=== PATIENT | female | born 1970 | race Caucasian/White ===

== ENCOUNTER 2017-03-07 18:58 | Emergency (ER) | payer SELFPAY ==
[~2017-03-07] VITALS: Ht 165.1 cm; Wt 83.9 kg
[2017-03-07] MEDS ORDERED: IV NORMAL SALINE 1000ML BAG 1,000 ML IV SCH (19:17)
--- NOTE | 2017-03-07 19:32 | PHYS DOC ---
Adult General Chief Complaint Chief Complaint: ALTERED MENTAL STATUS HPI HPI Patient is a 46 year old female brought to the ED from home by EMS. History is from EMS and also from the patient's who arrived. Patient had been fine earlier today. About 5:30 or 6 she called her on his cell phone. He was at football practice. He thought her speech sounded slurred, she was saying that there was something wrong with her, he couldn't really make out what she was saying, he rushed home. When he got home he found her "freaking out" saying that she was going to . Her speech was slurred. Her fingers were cramped. He was concerned she might be having a stroke because of her slurred speech. He called 911. When paramedics arrived they stated that she was talking without slurred speech and corroborates this. She was breathing fast and deep according to and EMS. When they loaded her into the ambulance she "went out". They noted carpal spasm bilaterally. Her vitals remained stable despite being nonverbal and "out of it" although tachycardic in the 120s. Her sats were 99% on room air. Patient has been states "she panics real easy" but she has never had a panic attack or had anything like this to his knowledge. She's been nervous and anxious lately because they have 6 kids and she is always anxious at back to school time. However she has not had any complaints of this prior to this evening. She doesn't believe she would've taken any overdose, any and prescribed medications or other drugs. She's had a history of "anxiety and depression" but never been suicidal, never had any type of severe episode or hospitalization. She has no chronic medical problems, her only meds are related to anxiety and also Vyvanse. PCP Dr Mega Medeiros Review of Systems Review of Systems Patient is nonverbal and unable to give review of systems Current Medications Current Medications Current Medications Medications (Trade) Dose Ordered Sig/Wendie Start Time Stop Time Status Last Admin Dose Admin Fentanyl Citrate (Fentanyl 2ml Vial) 75 mcg 1X ONCE 03/07/17 20:45 03/07/17 20:46 DC 03/07/17 20:56 75 MCG Ketorolac Tromethamine (Toradol) 30 mg 1X ONCE 03/07/17 22:00 03/07/17 22:01 DC 03/07/17 21:51 30 MG Lorazepam (Ativan) 1 mg 1X ONCE 03/07/17 20:45 03/07/17 20:46 DC 03/07/17 20:56 1 MG Sodium Chloride 1,000 ml @ 1,000 mls/hr Q1H 03/07/17 19:17 03/07/17 20:17 DC 03/07/17 19:27 1,000 MLS/HR Allergies Allergies Allergies Coded Allergies Type Severity Reaction Last Updated Verified No Known Drug Allergies 03/07/17 No Physical Exam Physical Exam Constitutional: Healthy appearing, diaphoretic 46-year-old female who has her eyes closed, exhibiting carpal spasm bilaterally, pulse ox on room air 99%, 163/ 92, sinus tach at 120. When I asked the patient if she can open her eyes, she did open her eyes. When I ask her to speak, she did not speak. HENT: Normocephalic, atraumatic, bilateral external ears normal, oropharynx moist, no oral exudates, nose normal. [] Eyes: conjunctiva normal, no discharge. [] Neck: Normal range of motion, no stridor. [] Cardiovascular:Heart rate regular tachycardia, no murmur [] Lungs & Thorax: Bilateral breath sounds clear to auscultation [] Abdomen: Bowel sounds normal, soft, no tenderness, no masses, no pulsatile masses. [] Skin: Warm, dry, no erythema, no rash. [] Extremities: No tenderness, no cyanosis, no clubbing, ROM intact, no edema. Carpal spasm bilaterally, her leg muscles appear to be spasmed bilaterally. Neurologic: Patient exhibiting carpal spasm bilaterally, increased tone in both her arms and both her legs that appear to be symmetric, face appears to be symmetrically increased tone. She is able to open her eyes when asked but she does not open her mouth or speak, she was able to open her mouth for getting a temp. Current Patient Data Vital Signs Vital Signs Date Time Temp Pulse Resp B/P (MAP) Pulse Ox O2 Delivery O2 Flow Rate FiO2 03/07/17 22:57 82 16 152/77 (102) 99 Room Air 03/07/17 19:15 98.3 98.3 Lab Values Laboratory Tests Test 03/07/17 19:15 03/07/17 19:17 White Blood Count 9.5 x10^3/uL (4.0-11.0) Red Blood Count 4.81 x10^6/uL (3.50-5.40) Hemoglobin 15.2 g/dL (12.0-15.5) Hematocrit 44.4 % (36.0-47.0) Mean Corpuscular Volume 92 fL (79-100) Mean Corpuscular Hemoglobin 32 pg (25-35) Mean Corpuscular Hemoglobin Concent 34 g/dL (31-37) Red Cell Distribution Width 13.8 % (11.5-14.5) Platelet Count 184 x10^3/uL (140-400) Neutrophils (%) (Auto) 72 % (31-73) Lymphocytes (%) (Auto) 20 % (24-48) L Monocytes (%) (Auto) 7 % (0-9) Eosinophils (%) (Auto) 1 % (0-3) Basophils (%) (Auto) 1 % (0-3) Neutrophils # (Auto) 6.8 x10^3uL (1.8-7.7) Lymphocytes # (Auto) 1.9 x10^3/uL (1.0-4.8) Monocytes # (Auto) 0.6 x10^3/uL (0.0-1.1) Eosinophils # (Auto) 0.1 x10^3/uL (0.0-0.7) Basophils # (Auto) 0.0 x10^3/uL (0.0-0.2) Sodium Level 138 mmol/L (136-145) Potassium Level 3.5 mmol/L (3.5-5.1) Chloride Level 99 mmol/L (98-107) Carbon Dioxide Level 23 mmol/L (21-32) Anion Gap 16 (6-14) H Blood Urea Nitrogen 8 mg/dL (7-20) Creatinine 0.8 mg/dL (0.6-1.0) Estimated GFR (Cockcroft-Gault) 77.9 BUN/Creatinine Ratio 10 (6-20) Glucose Level 114 mg/dL (70-99) H Calcium Level 9.0 mg/dL (8.5-10.1) Total Bilirubin 0.8 mg/dL (0.2-1.0) Aspartate Amino Transferase (AST) 29 U/L (15-37) Alanine Aminotransferase (ALT) 42 U/L (14-59) Alkaline Phosphatase 54 U/L (46-116) Total Protein 7.9 g/dL (6.4-8.2) Albumin 4.3 g/dL (3.4-5.0) Albumin/Globulin Ratio 1.2 (1.0-1.7) O2 Saturation 98 % (92-99) Arterial Blood pH 7.55 (7.35-7.45) *H Arterial Blood pCO2 at Patient Temp 24 mmHg (35-46) L Arterial Blood pO2 at Patient Temp 126 mmHg (75-108) H Arterial Blood HCO3 20 mmol/L (21-28) L Arterial Blood Base Excess 0 mmol/L (-3-3) Oxyhemoglobin 97.3 % Methemoglobin 0.4 % (0.0-1.9) Carbon Monoxide, Quantitative 0.5 % (0.0-1.9) FiO2 21 Laboratory Tests 03/07/17 19:15 Laboratory Tests 03/07/17 19:15 EKG EKG 12-lead EKG read by me. Sinus tachycardia. Heart rate 105. Significant baseline artifact due to muscle tremors. There are no acute ST or T wave changes indicative of ischemia or infarction. No STEMI. [] 190 Radiology/Procedures Radiology/Procedures [] Course & Med Decision Making Course & Med Decision Making Pertinent Labs and Imaging studies reviewed. (See chart for details) 46-year-old female brought from home by EMS with the initial complaint of slurred speech but then developed unconscious episode after witnessed to be hyperventilating and also bilateral carpal spasm. On arrival, she initially appeared to be unresponsive but then over the period of 5 or 10 minutes she would open her eyes when asked. When I initially saw the patient, I asked her if she is having pain, she makes a little noise but does not verbalize. She then would wave both of her arms around to indicate that her hands are hurting and also gestured toward her chest to indicate her chest is hurting. She was encouraged to tell us what was bothering her bit she was not able to talk on initial presentation. I discussed with the patient and her my initial suspicion that she may have had a hyperventilation episode, I recommended a liter of IV fluids because the patient is profoundly diaphoretic and some labs including ABG, they're agreeable to that plan. Patient slowly began to move her extremities and talk. It took her quite a while to come around. She had a couple doses of IV Ativan and fentanyl for muscle spasm, anxiety, and pain. Also a dose of IV Toradol. Family remained at the bedside. Labs, ABG consistent with the diagnosis of hyperventilation episode. 2300: Recheck of the patient, she is alert and talking to family members. She is asking for ice water. Patient and family members have a lot of questions about her chronic medications in addition to whether she can have something for pain and muscle relaxer/anxiety. We discussed this at some length. See instructions for plan. [] Dragon Disclaimer Dragon Disclaimer This electronic medical record was generated, in whole or in part, using a voice recognition dictation system. Departure Departure Impression: Primary Impression: Acute hyperventilation syndrome Additional Impressions: Anxiety Carpopedal spasm Disposition: HOME, SELF-CARE Condition: IMPROVED Patient Instructions: Hyperventilation Additional Instructions: As we discussed, you will be more stiff and sore when you wake up in the morning. Take a hot shower, take ibuprofen 800 mg, and you should improve over one or 2 hours. I have prescribed hydrocodone for pain, this is an opiate, use sparingly. This will be sedating and constipating. Also, when using with Xanax, use the lower end of the dosing range on both medications. You may take your prescribed Xanax 0.25 mg, 1 or 2 for anxiety and muscle relaxation. No driving while taking Xanax or hydrocodone. Scripts Hydrocodone/Apap 5-325 (NORCO 5-325 TABLET) 1 Each Tablet 1-2 TAB PO Q4-6HRS for muscle pain, #10 TAB Prov: ERICKA COKER MD 03/07/17 Problem Qualifiers ERICKA COKER MD Mar 07, 2017 19:32
[2017-03-07 19:40] LABS: BASO % 1 % (0-3); EOS % 1 % (0-3); HEMATOCRIT 44.4 % (36.0-47.0); HEMOGLOBIN 15.2 g/dL (12.0-15.5); LYMPH # 1.9 x10^3/uL (1.0-4.8); LYMPH % 20 % (24-48); MEAN CORPUSCULAR HEMOGLOBIN 32 pg (25-35); MEAN CORPUSCULAR HGB CONC 34 g/dL (31-37); MEAN CORPUSCULAR VOLUME 92 fL (79-100); MONO % 7 % (0-9); NEUT % 72 % (31-73); PLATELET COUNT 184 x10^3/uL (140-400); RED BLOOD COUNT 4.81 x10^6/uL (3.50-5.40); RED CELL DISTRIBUTION WIDTH 13.8 % (11.5-14.5); WHITE BLOOD COUNT 9.5 x10^3/uL (4.0-11.0)
[2017-03-07 19:48] LABS: BASE EXCESS COOX 0 mmol/L (-3-3); CARBON MONOXIDE 0.5 % (0.0-1.9); HCO3 COOX 20 mmol/L (21-28); METHEMOGLOBIN 0.4 % (0.0-1.9); OXYHEMOGLOBIN 97.3 %; PCO2 COOX 24 mmHg (35-46); PO2 COOX 126 mmHg (75-108); SAT O2 COOX 98 % (92-99); TOTAL HEMOGLOBIN 15.4 g/dL
[2017-03-07 19:49] LABS: FIO2 COOX 21; PH COOX 7.55 (7.35-7.45)
[2017-03-07 19:55] LABS: CREATININE 0.8 mg/dL (0.6-1.0); GFR 77.9; POTASSIUM 3.5 mmol/L (3.5-5.1)
[2017-03-07 20:03] LABS: ALBUMIN 4.3 g/dL (3.4-5.0); ALBUMIN/GLOBULIN RATIO 1.2 (1.0-1.7); TOTAL BILIRUBIN 0.8 mg/dL (0.2-1.0); TOTAL PROTEIN 7.9 g/dL (6.4-8.2)
[2017-03-07] MEDS ORDERED: fentaNYL PF VIAL 100 MCG/2 ML VIAL IV ONE ×2 (20:15→20:45)
[2017-03-07] MEDS ORDERED: LISD50CA3 PO (20:34)
[2017-03-07] MEDS ORDERED: ALPR0.254 PO (20:34)
[2017-03-07] MEDS ORDERED: TRAZ100T12 PO (20:34)
[2017-03-07] MEDS ORDERED: SERT100T PO (20:34)
[2017-03-07] MEDS ORDERED: KETOROLAC TROMETHAMINE 30 MG/ML INJ. IV ONE (22:00)
[2017-03-07 22:57] VITALS: BP 152/77
[2017-03-07] MEDS ORDERED: HYDR-971 PO (23:17)
[2017-03-07] MEDS ORDERED: HYDROcodone/APAP 5/325MG 1 TAB TABLET PO ONE (23:30)
--- NOTE | 2017-03-07 23:48 | EKG ---
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
== END 2017-03-08 00:01 | disposition home or self-care (01) ==
LOC: ER 18:58
DX: F45.8 Other somatoform disorders (principal); F41.9 Anxiety disorder, unspecified; R29.0 Tetany
CPT/HCPCS: 36415; 36600; 80053; 82805; 85027; 93005; 96361; 96374; 96375; 96376; 99285; J1885; J2060; J3010; J7030

== ENCOUNTER 2019-08-07 13:50 | Emergency (ER) | payer SELFPAY ==
[~2019-08-07 13:50] MED LIST: ALPR0.254 PO; HYDR-3164 PO; LISD50CA3 PO; SERT100T PO; TRAZ-123 PO
== END 2019-08-07 13:54 | disposition left against medical advice (07) ==
LOC: ER 13:50
DX: T76.21XA Adult sexual abuse, suspected, initial encounter (principal); Z53.21 Procedure and treatment not carried out due to patient leaving prior to being seen by health care provider